=== PATIENT | female | born 1960 | race Caucasian/White ===

== ENCOUNTER 2017-11-23 08:22 | Outpatient (CLI) | payer BC ==
--- NOTE | 2017-11-23 10:09 | MMO ---
BILATERAL SCREENING MAMMOGRAMS: Date: 11/23/17 Comparison made to prior exams from 2015, 2016, and 2017. This patient's mammogram was interpreted with the assistance of computer-aided detection. FINDINGS: Heterogeneously dense glandular pattern is seen. Scattered benign calcifications. No mass or distorti on. No evidence of interval change. Recommend 1 year follow-up. IMPRESSION: BIRADS 2: Benign Finding(s) POS: [place]
== END 2017-11-23 08:23 | disposition home or self-care (01) ==
LOC: SCSMAMMO 08:22
PROVIDERS: ATTEND Family Medicine
DX: Z12.31 Encounter for screening mammogram for malignant neoplasm of breast (principal)
CPT/HCPCS: 77067

== ENCOUNTER 2018-12-05 08:09 | Outpatient (CLI) | payer BC ==
--- NOTE | 2018-12-12 13:20 | MMO ---
Bilateral MAMMO Bilat Screen [facility]. CLINICAL HISTORY: Patient is 58 years old and is seen for screening. The patient has no family history of breast cancer. The patient has no personal history of cancer. The patient has a history of needle biopsy in 2011 - benign and Cyst Aspiration in 2010. VIEWS: The views performed were: bilateral craniocaudal and bilateral mediolateral oblique. FILMS COMPARED: The present examination has been compared to prior imaging studies performed at [facility] on 10/29/2016 and 11/23/2017, and at [facility] on 10/08/2014, 10/16/2015 and 10/18/2015. This study has been interpreted with the assistance of computer-aided detection. MAMMOGRAM FINDINGS: The breasts are heterogeneously dense, which could obscure a lesion on mammography. There are no suspicious masses, calcifications or areas of architectural distortion. IMPRESSION: THERE IS NO MAMMOGRAPHIC EVIDENCE OF MALIGNANCY. A ROUTINE FOLLOW-UP MAMMOGRAM IN 1 YEAR IS RECOMMENDED. ACR BI-RADS Category 1 - Negative MAMMOGRAPHY NOTE: 1. A negative mammogram report should not delay a biopsy if a dominant of clinically suspicious mass is present. 2. Approximately 10% to 15% of breast cancers are not detected by mammography. 3. Adenosis and dense breasts may obscure an underlying neoplasm.
== END 2018-12-05 08:10 | disposition home or self-care (01) ==
LOC: SCSMAMMO 08:09
PROVIDERS: ATTEND Family Medicine
DX: Z12.31 Encounter for screening mammogram for malignant neoplasm of breast (principal); Z98.890 Other specified postprocedural states
CPT/HCPCS: 77067

== ENCOUNTER 2022-08-21 08:08 | Outpatient (CLI) | payer BC, OTHER | END 2022-08-21 08:09 | disposition home or self-care (01) | LOC: BICMAMMO 08:08 | PROVIDERS: ATTEND Family Medicine | DX: R92.8 Other abnormal and inconclusive findings on diagnostic imaging of breast (principal) | CPT/HCPCS: G0279 ==

== ENCOUNTER 2023-03-03 11:34 | Outpatient (CLI) | payer BC | END 2023-03-03 11:35 | disposition home or self-care (01) | LOC: RAD 11:34 | PROVIDERS: ATTEND Family Medicine | DX: M89.312 Hypertrophy of bone, left shoulder (principal) | CPT/HCPCS: 71046 ==